=== PATIENT | male | born 1980 | race Caucasian/White ===

== ENCOUNTER 2018-05-27 12:22 | Emergency (ER) | payer OTHER, SELFPAY ==
[2018-05-27 12:23] VITALS: BP 109/75; PULSE 75; RESP 16; TEMP 37.1; O2SAT 100; BMI 21.7
[2018-05-27] MEDS: Morphine 4 MG/ML Syringe IM (12:37)
[2018-05-27] MEDS: Orphenadrine 60 MG/2 ML Ampul IM (12:38)
[2018-05-27 13:41] LABS: Bacteria 0 SEEN /hpf (None Seen); Mucous, Urine 0 SEEN /hpf (<or=2+); Red Blood Cells-Urine 0 SEEN /hpf (0-5); Squamous Epithelial Cells - UA 0 SEEN /hpf (0-5); White Blood Cells 0 SEEN /hpf (0-5)
[2018-05-27] MEDS: Ketorolac 60 MG/2 ML Vial IM (13:42)
[2018-05-27 13:43] LABS: Color, Urine Yellow (Yellow); Glucose, Dipstick Normal (Normal); Ketone-Dipstick Negative (Negative); Leukocyte Esterase-Dipstick Negative /ul (Negative); Nitrite-Dipstick Negative (Negative); Occult Blood-Urine Negative /ul (Negative); Protein-Dipstick Negative (Negative); Urine Bilirubin Dipstick Negative (Negative); Urine Clarity Clear (Clear); Urine Urobilinogen Normal (Normal)
--- NOTE | 2018-05-27 14:08 | ED.RN ---
PT CONTINUES TO SIT IN WHEELCHAIR FOR COMFORT. STATES NOTHING IS HELPING. AWARE, UP FOR REEVAL.
--- NOTE | 2018-05-27 14:13 | CT_ITS ---
STUDY: CT ABDOMEN AND PELVIS WITHOUT CONTRAST REASON FOR EXAM: Male, 37 years old. Low back pain. RADIATION DOSAGE (If Supplied By Facility): CTDIvol = ( 6.52 ) mGy, DLP = ( 307.85 ) mGycm TECHNIQUE: Transaxial images were obtained from the dome of the diaphragm to the symphysis pubis without oral contrast, and without intravenous contrast. Sagittal and coronal images were reconstructed. Individualized dose optimization techniques were used for this CT. COMPARISON: None. FINDINGS: There is a 1.2 cm x 0.8 cm slightly lobulated nodule in the left lower lobe as seen on axial image #22. This may represent a vascular malformation. A dedicated CT scan of the thorax with IV contrast is recommended if clinically indicated. The visualized portions of the heart are within normal limits. Normal liver. Mild increased density within the dependent portion of the gallbladder lumen suggestive of sludge or gallstones. Normal spleen. Normal pancreas. Normal bilateral adrenal glands. Normal right kidney. Normal left kidney. Normal visualized stomach. Normal small intestine. Normal colon. The appendix is visualized and appears normal. Normal abdominal aorta. Normal inferior vena cava. Normal retroperitoneum. Normal urinary bladder. Small lymph nodes are seen within the mesentery in the right lower quadrant. This is suggestive of a mesenteric adenitis. Normal abdominal wall. Straightening of the normal lumbar lordosis. Central disc bulge at the L4-L5 level causing deformity of the anterior thecal sac. CT/Abdomen/Pelvis without Cont IMPRESSION: 1.2 cm x 0.8 cm lobulated nodule in the left lower lobe as seen on axial image #22. A dedicated CT scan of thorax with IV contrast is recommended if clinically indicated. Central disc bulge at the L4-L5 level. Findings suggestive of mesenteric adenitis. Electronically Signed: Akbar Gage MD at 15:30 EDT Tel [phone], Service support ,
[2018-05-27] MEDS: Morphine 4 MG/ML Syringe IV (14:42)
[2018-05-27] MEDS: Ondansetron 4 MG/2 ML Vial IV (14:42)
[2018-05-27] MEDS: 0.9% Normal Saline 1,000 ML 1000 ML IV (14:43)
[2018-05-27 14:50] LABS: Absolute Lymphocyte Count 1.17 X10^3/ul (0.83-4.51); Absolute Neutrophil Count 7.9 X10^3/uL (2.0-7.7); Basophil# 0.02 X10^3/uL; Basophil% 0.2 % (0-1); Eosinophil# 0.13 X10^3/uL; Eosinophils% 1.3 % (0-5); Hematocrit 41.2 % (40-54); Hemoglobin 13.6 g/dl (13.0-16.5); Lymphocyte # 1.17 X10^3/ul (4.0); Lymphocyte % 12.1 % (19-41); Mean Corpuscular Hgb 28.9 pg (27.0-32.0); Mean Corpuscular Volume 87.5 fL (80-94); Mean Platelet Vol. 9.9 fl (6.2-12.0); Monocyte% 5.2 % (0-10); Neutrophil # 7.87 X10^3/uL (2.7-7.7); Neutrophil % 81.1 % (47-70); Platelet Count 288 K/mm3 (150-450); RBC Distribution Width CV 12.7 % (11.6-14.6); RBC Distribution Width SD 40.7 fl (35.1-43.9); Red Blood Count 4.71 M/mm3 (4.6-6.2); White Blood Count 9.7 K/mm3 (4.4-11.0)
[2018-05-27 14:51] LABS: POSITIVE COUNT NO; POSITIVE DIFFERENTIAL NO; POSITIVE MORPHOLOGY NO
[2018-05-27 15:13] LABS: ALB/GLOB Ratio 1.2 RATIO (0.9-2.4); AST(SGOT) 23 U/L (15-37); Alanine Aminotransfer ALT/SGPT 30 U/L (16-61); Albumin, Serum 4.2 g/dL (3.2-5.0); Alkaline Phosphatase 72 U/L (45-117); Anion Gap 8 (5-15); BUN 11 mg/dL (7-18); BUN/Creat Ratio 9.5 RATIO (10-20); Chloride 103 mmol/L (98-107); Creatinine, Serum 1.16 mg/dL (0.70-1.30); EST Glomerular Filtration Rate 75 mL/min (>60); Est Glom Filt Rate - Afr Amer 90 mL/min (>60); Globulin 3.6 g/dL (2.2-4.2); Glucose 106 mg/dL (74-106); Potassium 3.8 mmol/L (3.5-5.1); Protein, Total 7.8 g/dL (6.4-8.2); Sodium Level 137 mmol/L (136-145)
--- NOTE | 2018-05-27 16:11 | ED.DCSUM_ITS ---
- ER Visit Summary Date of Service: 05/27/18 Chief Complaint: [back pain] History of Present Illness: The patient is a 37 M [that is with lower back pain that is worse with movement. This began shortly after he woke up this morning. Pain is worse with movement of his torso. He denies any abdominal pain, nausea, or vomiting. He denies any specific fall or injury. He feels like his back went out. No bowel or bladder incontinence or retention. No symptoms of saddle anesthesia. He appears mildly uncomfortable secondary to pain. No other symptoms or complaints.] Physical Examination: [General: The patient appears well and in no apparent distress. Patient is resting comfortably on cart. Skin: Warm, dry, no pallor noted. No rash. Head: Normocephalic, atraumatic Neck: Supple, nontender. Cardiovascular: Regular Rate and Rhythm, no gallups or rubs Respiratory: Patient is in no distress, no accessory muscle use, lungs are clear to auscultation, no wheezing, rales or rhonchi Musculoskeletal: normal ROM, no deformity, no tenderness, no swelling. 2+ radial and DP pulses symmetric. Back: No spinal tenderness, bilateral lumbar paraspinal tenderness on exam GI: No tenderness to palpation, no masses appreciated. No rebound, guarding, or rigidity noted. Neurological: A&O, normal strength and sensation. 5/5 bilateral lower extremity strength intact. Sensation normal. Psychiatric: Cooperative] Test Results: [Bloodwork overall unremarkable. Urinalysis not consistent with infection. CT abdomen and pelvis shows a incidental left lower lung nodule and mesenteric adenitis lymphadenopathy.] Emergency Department Course and Treatment: [Patient had very reproducible pain upon presentation with movement of his back. His neurological exam is normal. He was initially given morphine and Norflex IM but with only slight improvement of his symptoms. On reevaluation given that he had continued symptoms without significant improvement I did place an IV and obtain blood work. Blood work was overall unremarkable. Urinalysis is not consistent with infection. No significant red cells or hematuria. Patient was given IV fluids, morphine, and Toradol. CT imaging was obtained that shows an incidental left lung nodule as well as lymphadenopathy consistent with possible mesenteric adenitis. Appendix was visualized and appears normal. Patient denies any abdominal pain. On reevaluation at 1605 patient is resting comfortably in bed and currently eating without difficulty. He does feel improved. Abdominal exam remains soft, nontender, nondistended. No right lower quadrant tenderness on exam. His pain is consistent with musculoskeletal back pain but I did advise him a possible other etiologies and the need for close outpatient follow-up with his doctor within 24 hours and prompt return to the emergency department with any new or worsening symptoms or if unable to obtain an close follow-up appointment. Patient verbalized understanding and is agreeable with this plan of care. I advised him of the incidental lung nodule finding for follow-up and he is agreeable to follow closely with his primary provider for this as well. Patient will be given prescription for tramadol and Flexeril. Patient agreeable with this plan of care. Patient discharged home in stable and improved condition.] Treatment Plan: [see above] Disposition: [discharge home, stable and improved condition] Impression: [Lumbar back Pain - improved, incidental lung nodule] This note was generated with MetaNotes dictation software. It may contain incorrect words, spelling, and punctuation that were not noted in review of the chart prior to signing ED Disposition - Plan for ED Patient: Disposition: Home or Assisted Living Chief Complaint: Back Instructions: ED Neck Back Pain General Prescriptions: traMADol [Ultram] 50 mg PO Q6H PRN PRN #12 tab PRN Reason: Pain Cyclobenzaprine [Flexeril] 10 mg PO TID PRN #20 tab PRN Reason: Muscle Spasm Referrals: Neil Zhang [Primary Care Provider] -
[2018-05-27 16:28] VITALS: BP 123/65; PULSE 77; RESP 16; O2SAT 100
== END 2018-05-27 16:38 | disposition home or self-care (01) ==
PROVIDERS: Emergency Provider Emergency Medicine; Family Provider Family Medicine; PCP Family Medicine
DX: M54.5 Low back pain (principal); R91.1 Solitary pulmonary nodule; I88.9 Nonspecific lymphadenitis, unspecified
CPT/HCPCS: 74176; 80053; 81001; 85025; 96361; 96372; 96374; 96375; 99283; J7030; A4216; J2405

== ENCOUNTER → 2023-03-06 | Outpatient (CLI) | payer OTHER, SELFPAY ==
--- NOTE | 2023-03-06 06:49 | MRI_ITS ---
STUDY: MRI CERVICAL SPINE WITHOUT CONTRAST REASON FOR EXAM: Male, 42 years old. Neck pain TECHNIQUE: Standardized fat and water weighted pulse sequences were obtained in the sagittal and axial planes. COMPARISON: Cervical spine radiograph February 17, 2023 FINDINGS: Normal foramen magnum and brainstem-cervical cord junction. Normal craniovertebral junction. Normal anterior atlantoaxial articulation. Normal odontoid process. Normal cervical lordosis. Normal vertebral bodies and posterior osseous elements. C2-3: Normal endplates. Normal disc height, signal and morphology. Normal central canal and intervertebral neural foramina. C3-4: Normal endplates. Normal disc height, signal and morphology. Normal central canal and mild narrowing left intervertebral neural foramina. C4-5: Normal endplates. Normal disc height, signal and morphology. Normal central canal and mild narrowing left intervertebral neural foramina. C5-6: Normal endplates. Normal disc height, signal and morphology. Normal central canal and intervertebral neural foramina. C6-7: Normal endplates. Normal disc height, signal and morphology. Normal central canal and moderate narrowing left intervertebral neural foramina. C7-T1: Normal endplates. Normal disc height, signal and morphology. Normal central canal and intervertebral neural foramina. Normal cervical cord. Normal visualized soft tissue structures. MRI/Spine Cervical (Routine) IMPRESSION: Multilevel narrowing of the neural foramina on the left as above especially at C6-7 Electronically Signed: Erick Juarez MD at 23:43 EDT ,
== END | disposition home or self-care (01) ==
PROVIDERS: PCP Family Medicine; Referring Provider Nurse Practitioner; Visit Provider Nurse Practitioner
DX: M54.2 Cervicalgia (principal)
CPT/HCPCS: 72141